=== PATIENT | female | born 1945 | race Caucasian/White ===

== ENCOUNTER 2020-11-30 17:32 | Emergency (ER) | payer MEDICARE ==
[~2020-11-30] VITALS: Ht 175.3 cm; Wt 94.8 kg
[2020-11-30 17:35] VITALS: BP 128/61
--- NOTE | 2020-11-30 19:15 | NUR ---
recieved report from marleen sarabia.
[2020-11-30] MEDS ORDERED: LIDOCAINE 2% 20 ML MDV ONE (19:47)
[2020-11-30] MEDS: LIDOCAINE HCL/PF 1% 30 ML VIAL TP ONE (20:02)
[2020-11-30] MEDS ORDERED: CEPH500T PO (20:43)
== END 2020-11-30 20:53 | disposition home or self-care (01) ==
LOC: ER 17:40
DX: S93.125A Dislocation of metatarsophalangeal joint of left lesser toe(s), initial encounter (principal); S91.115A Laceration without foreign body of left lesser toe(s) without damage to nail, initial encounter; S80.212A Abrasion, left knee, initial encounter; E11.40 Type 2 diabetes mellitus with diabetic neuropathy, unspecified; E03.9 Hypothyroidism, unspecified; E78.5 Hyperlipidemia, unspecified; Z79.01 Long term (current) use of anticoagulants; W18.39XA Other fall on same level, initial encounter; Y93.89 Activity, other specified; Y92.89 Other specified places as the place of occurrence of the external cause; Y99.8 Other external cause status
CPT/HCPCS: 28630; 73660; 99284; A6403; J3490 ×2

== ENCOUNTER 2025-01-06 14:54 | Inpatient (IN) | payer MEDICARE ==
[~2025-01-06] VITALS: Ht 175.3 cm; Wt 79.4 kg
[~2025-01-06 14:54] MED LIST: CEPH500C2 PO; CEPH500T PO
[2025-01-06 15:28] LABS: PLATELET COUNT (AUTO) 283 K/uL (150-450); RED BLOOD CELL COUNT(AUTO) 3.22 MIL/uL (4.0-5.2); RED CELL DISTRIBUTION WIDTH 14.8 % (11.5-15.0); WHITE BLOOD COUNT (AUTO) 6.2 K/uL (4.3-11.0)
[2025-01-06 15:35] LABS: CALCIUM, SERUM 8.9 mg/dL (8.5-10.1); CREATININE 1.6 mg/dL (0.6-1.3); SODIUM SERUM 128 mmol/L (136-145); UREA NITROGEN, BLOOD 30 mg/dL (7-18)
[2025-01-06] MEDS: IV NS 0.9% 1,000 ML BAG IV ONE (15:35)
[2025-01-06 15:48] LABS: NT-PRO BNP 92 pg/mL (0-125)
[2025-01-06] MEDS ORDERED: IV NS 0.9% 250 ML IV ONE (16:35)
[2025-01-06] MEDS ORDERED: IOHEXOL-350 100 ML VIAL IV ONE (16:35)
[2025-01-06 16:38] LABS: APPEARANCE,URINE CLEAR (CLEAR); BLOOD, URINE Negative Ery/uL (NEGATIVE); LEUKOCYTE ESTERASE ,URINE Small (NEGATIVE); UGLUCOSE 500 MG/DL mg/dL (NEGATIVE)
[2025-01-06 16:41] LABS: NITRITE, URINE NEGATIVE (NEGATIVE)
[2025-01-06 16:42] LABS: ADD URINE CULTURE YES; SQUAMOUS EPITHELIAL CELL,UR Few /HPF (None Seen)
[2025-01-06] MEDS: ENOXAPARIN SODIUM 80 MG/0.8 ML DISP.SYRIN SQ ONE (18:00)
[2025-01-06] MEDS: CEFTRIAXONE 1GM BAG (ER ONLY) 1 GM/50 ML PIGGYBACK IV ONE (18:00)
[2025-01-06] MEDS ORDERED: ONDANSETRON HCL/PF 4 MG/2 ML VIAL IVP PRN (18:30)
[2025-01-06] MEDS ORDERED: Z GUARD REMEDY 4 OZ OINT TP PRN (18:30)
[2025-01-06] MEDS ORDERED: MAG HYDROX/AL HYDROX/SIMETH 30 ML UDC PO PRN (18:30)
[2025-01-06] MEDS ORDERED: MAGNESIUM HYDROXIDE 30 ML UDC PO PRN (18:30)
[2025-01-06] MEDS ORDERED: CEFTRIAXONE 1GM BAG (ER ONLY) 50 ML IV ONE (18:31)
[2025-01-06] MEDS ORDERED: DEXTROSE 50%-WATER 50 ML DISP.SYRIN IV PRN (19:00)
[2025-01-06] MEDS ORDERED: CALC0.253 PO (19:13)
[2025-01-06] MEDS ORDERED: PROP10TA68 PO (19:13)
[2025-01-06] MEDS ORDERED: CLOP75TA15 PO (19:13)
[2025-01-06] MEDS ORDERED: GLIM2TAB31 PO (19:13)
[2025-01-06] MEDS ORDERED: LATA2.5D15 EACHEYE (19:13)
[2025-01-06] MEDS ORDERED: DONE10TA44 PO (19:13)
[2025-01-06] MEDS ORDERED: MIRT-90 PO (19:13)
[2025-01-06] MEDS ORDERED: SIMV-49 PO (19:13)
[2025-01-06] MEDS ORDERED: DULO60CA64 PO (19:13)
[2025-01-06] MEDS ORDERED: GABA-532 PO (19:13)
[2025-01-06] MEDS ORDERED: METF-881 PO (19:13)
[2025-01-06] MEDS ORDERED: EMPA25TA PO (19:13)
[2025-01-06] MEDS ORDERED: LISI20TA30 PO (19:13)
[2025-01-06] MEDS ORDERED: LEVO75TA7 PO (19:13)
[2025-01-06] MEDS ORDERED: CYAN10006 IM (19:13)
[2025-01-06] MEDS ORDERED: ENOXAPARIN SODIUM 80 MG/0.8 ML DISP.SYRIN SQ ONE (19:30)
[2025-01-06 20:15] VITALS: BP 141/57; O2SAT 97
[2025-01-06] MEDS: EPOETIN ALFA (10,000 UNIT) 10,000 UNIT/ML VIAL SQ ONE (20:34)
[2025-01-06] MEDS: IV NS 0.9% 1,000 ML IV PRN (20:55)
[2025-01-06] MEDS: BLOOD SUGAR DIAGNOSTIC 1 EACH STRIP IN SCH (22:55)
[2025-01-06] MEDS: INSULIN REGULAR, HUMAN 100 UNIT/ML 3 ML VIAL SQ PRN (22:56)
[2025-01-07] VITALS: BP 130/45; TEMP 97.9; O2SAT 100
[2025-01-07 04:00] VITALS: BP 105/56; TEMP 97.5; O2SAT 100
[2025-01-07 06:32] LABS: PLATELET COUNT (AUTO) 285 K/uL (150-450); RED BLOOD CELL COUNT(AUTO) 3.44 MIL/uL (4.0-5.2); RED CELL DISTRIBUTION WIDTH 14.8 % (11.5-15.0); WHITE BLOOD COUNT (AUTO) 6.7 K/uL (4.3-11.0)
[2025-01-07 06:47] LABS: CALCIUM, SERUM 9.3 mg/dL (8.5-10.1); CREATININE 1.5 mg/dL (0.6-1.3); PHOSPHORUS 3.7 mg/dL (2.5-4.9); SODIUM SERUM 137.0 mmol/L (136-145); UREA NITROGEN, BLOOD 24.0 mg/dL (7-18)
[2025-01-07 08:00] VITALS: BP 120/50; TEMP 97.5; O2SAT 100
[2025-01-07] MEDS ORDERED: MIRTAZAPINE 15 MG TABLET PO PRN (10:30)
[2025-01-07 12:00] VITALS: BP 102/45; TEMP 97.9; O2SAT 98
[2025-01-07] MEDS: GLIMEPIRIDE 1 MG TABLET PO SCH (13:49)
[2025-01-07 16:00] VITALS: BP 115/55; TEMP 97.8; O2SAT 98
[2025-01-07] MEDS ORDERED: PROPRANOLOL HCL 10 MG TABLET PO SCH (17:00)
[2025-01-07] MEDS: SIMVASTATIN 20 MG TABLET PO SCH (17:08)
[2025-01-07] MEDS: CEFTRIAXONE 1 G in IV D5W 50 ML IV SCH (17:08)
[2025-01-07] MEDS: ENOXAPARIN SODIUM 80 MG/0.8 ML DISP.SYRIN SQ SCH (17:09)
[2025-01-07 20:00] VITALS: BP 119/53; TEMP 97.7; O2SAT 97
[2025-01-07 20:28] LABS: FIBRINOGEN ACTIVITY 357.0 Mg/dL (213-485); INR 1.03 (0.91-1.10)
[2025-01-07 21:04] LABS: IRON, SERUM 31.0 ug/dl (50-175)
[2025-01-07] MEDS: LATANOPROST EYE DROP 0.005% 2.5 ML BOTTLE EACHEYE SCH (21:08)
[2025-01-08] VITALS: BP 129/58; TEMP 97.9; O2SAT 97
[2025-01-08] MEDS: ACETAMINOPHEN 325 MG TABLET PO PRN (00:01)
[2025-01-08 04:00] VITALS: BP 131/53; TEMP 97.7; O2SAT 98
[2025-01-08 07:52] LABS: PLATELET COUNT (AUTO) 268 K/uL (150-450); RED BLOOD CELL COUNT(AUTO) 3.37 MIL/uL (4.0-5.2); RED CELL DISTRIBUTION WIDTH 15.0 % (11.5-15.0); WHITE BLOOD COUNT (AUTO) 6.0 K/uL (4.3-11.0)
[2025-01-08 08:00] VITALS: BP 128/56; TEMP 97.5; O2SAT 98
[2025-01-08 08:27] LABS: CALCIUM, SERUM 9.3 mg/dL (8.5-10.1); CREATININE 1.5 mg/dL (0.6-1.3); SODIUM SERUM 143.0 mmol/L (136-145); UREA NITROGEN, BLOOD 24.0 mg/dL (7-18)
[2025-01-08] MEDS: EMPAGLIFLOZIN 25 MG TABLET PO SCH (08:30)
[2025-01-08] MEDS: CLOPIDOGREL BISULFATE 75 MG TABLET PO SCH (08:30)
[2025-01-08] MEDS: DULOXETINE HCL 30 MG CAPSULE.DR PO SCH (08:30)
[2025-01-08] MEDS: DONEPEZIL 5 MG TABLET PO SCH (08:30)
[2025-01-08] MEDS: LEVOTHYROXINE SODIUM 75 MCG TABLET PO SCH (08:31)
[2025-01-08] MEDS: GABAPENTIN 100 MG CAPSULE PO SCH (08:31)
[2025-01-08 12:00] VITALS: BP 123/59; TEMP 97.5; O2SAT 100
[2025-01-08 16:00] VITALS: BP 125/63; TEMP 98.1; O2SAT 100
[2025-01-08 20:00] VITALS: BP 126/60; TEMP 97.7; O2SAT 97
[2025-01-09] VITALS: BP 126/68; TEMP 97.5; O2SAT 97
[2025-01-09 04:00] VITALS: BP 122/58; TEMP 97.7; O2SAT 97
[2025-01-09 06:10] LABS: HOMOCYSTEINE, PLASMA 15.6 umol/L (0.0-19.2)
[2025-01-09 07:56] LABS: CALCIUM, SERUM 8.7 mg/dL (8.5-10.1); CREATININE 1.3 mg/dL (0.6-1.3); SODIUM SERUM 139.0 mmol/L (136-145); UREA NITROGEN, BLOOD 26.0 mg/dL (7-18)
[2025-01-09 08:00] VITALS: BP 122/61; TEMP 98.1; O2SAT 99
[2025-01-09 08:07] LABS: IMMUNOGLOBULIN A, SERUM 321 mg/dL (64-422); IMMUNOGLOBULIN M, SERUM 104 mg/dL (26-217)
[2025-01-09 08:19] LABS: PLATELET COUNT (AUTO) 255 K/uL (150-450); RED BLOOD CELL COUNT(AUTO) 2.97 MIL/uL (4.0-5.2); RED CELL DISTRIBUTION WIDTH 14.9 % (11.5-15.0); WHITE BLOOD COUNT (AUTO) 6.0 K/uL (4.3-11.0)
[2025-01-09 09:09] LABS: FOLIC ACID 8.4 ng/mL (>3.0)
[2025-01-09] MEDS: ENOXAPARIN SODIUM 80 MG/0.8 ML DISP.SYRIN SQ SCH (09:34)
[2025-01-09 11:07] LABS: FREE KAPPA LT CHAINS SERUM 49.0 mg/L (3.3-19.4); FREE LAMBDA LT CHAIN SERUM 39.1 mg/L (5.7-26.3); KAPPA/LAMBDA RATIO SERUM 1.25 (0.26-1.65)
[2025-01-09 12:00] VITALS: BP 118/58; TEMP 97.5; O2SAT 99
[2025-01-09] MEDS ORDERED: MAG30ORA PO (12:59)
[2025-01-09] MEDS ORDERED: INSU100V28 SQ (12:59)
[2025-01-09] MEDS ORDERED: ENOX80DI SQ (12:59)
[2025-01-09] MEDS ORDERED: Blood Sugar Diagnostic IN (12:59)
[2025-01-09] MEDS: SOD FERRIC GLUC 125 MG in IV NS 0.9% 100 ML IV SCH (13:38)
[2025-01-09 16:00] VITALS: BP 125/63; TEMP 98.2; O2SAT 96
[2025-01-09 20:00] VITALS: BP 126/60; TEMP 97.7; O2SAT 98
[2025-01-10] VITALS: BP 130/59; TEMP 97.7; O2SAT 98
[2025-01-10 04:00] VITALS: BP 123/57; TEMP 97.5; O2SAT 95
[2025-01-10 07:46] LABS: PLATELET COUNT (AUTO) 252 K/uL (150-450); RED BLOOD CELL COUNT(AUTO) 2.98 MIL/uL (4.0-5.2); RED CELL DISTRIBUTION WIDTH 15.0 % (11.5-15.0); WHITE BLOOD COUNT (AUTO) 5.9 K/uL (4.3-11.0)
[2025-01-10 07:50] LABS: CALCIUM, SERUM 9.1 mg/dL (8.5-10.1); CREATININE 1.2 mg/dL (0.6-1.3); SODIUM SERUM 140.0 mmol/L (136-145); UREA NITROGEN, BLOOD 29.0 mg/dL (7-18)
[2025-01-10 08:00] VITALS: BP 123/57; TEMP 97.5; O2SAT 100
[2025-01-10 12:00] VITALS: BP 123/57; TEMP 97.8; O2SAT 100
[2025-01-11] MEDS ORDERED: CYANOCOBALAMIN 1,000 MCG/ML VIAL IM SCH (09:00)
[2025-01-11] MEDS ORDERED: CALCITRIOL 0.25 MCG CAPSULE PO SCH (09:00)
[2025-01-12 14:12] LABS: *CARD ANTI-CARDIOLIPIN AB IgG <9 GPL U/mL (0-14); *CARD ANTI-CARDIOLIPIN AB IgM <9 MPL U/mL (0-12)
== END 2025-01-10 16:10 | DRG 175 ==
LOC: ER 15:07 → TELE1 19:34
PROVIDERS: ADMIT Nurse Practitioner Acute Care; ATTEND Nurse Practitioner Acute Care
DX: I26.99 Other pulmonary embolism without acute cor pulmonale (principal); N17.0 Acute kidney failure with tubular necrosis; E87.1 Hypo-osmolality and hyponatremia; N39.0 Urinary tract infection, site not specified; F84.0 Autistic disorder; I82.432 Acute embolism and thrombosis of left popliteal vein; E87.5 Hyperkalemia; I27.82 Chronic pulmonary embolism; I12.9 Hypertensive chronic kidney disease with stage 1 through stage 4 chronic kidney disease, or unspecified chronic kidney disease; N18.9 Chronic kidney disease, unspecified; E11.22 Type 2 diabetes mellitus with diabetic chronic kidney disease; E11.40 Type 2 diabetes mellitus with diabetic neuropathy, unspecified; E78.5 Hyperlipidemia, unspecified; D63.1 Anemia in chronic kidney disease; E03.9 Hypothyroidism, unspecified; E86.1 Hypovolemia; N25.0 Renal osteodystrophy; G47.33 Obstructive sleep apnea (adult) (pediatric); D50.9 Iron deficiency anemia, unspecified; I27.21 Secondary pulmonary arterial hypertension; L89.159 Pressure ulcer of sacral region, unspecified stage; Z79.02 Long term (current) use of antithrombotics/antiplatelets; Z79.84 Long term (current) use of oral hypoglycemic drugs; Z79.899 Other long term (current) drug therapy; Z87.440 Personal history of urinary (tract) infections; R00.1 Bradycardia, unspecified
CPT/HCPCS: 36415; 71045-TC; 80048-TC; 81001; 81240; 81241; 82378; 82607-TC; 82728-TC; 82784; 82962-TC; 83090; 83540-TC; 83735-TC; 83880; 84100-TC; 84155; 84165; 84443-TC; 84484-TC; 85025-TC; 85300; 85301; 85303; 85378-TC; 85396; 85613; 85670; 85705; 85732; 86147; 86334; 87086-TC; 93307-TC; 93970-TC; 97112-TC; 97116-TC; 97530-TC; A4223; G0378; J0696; J0885; J1650; J1815; J2916; J7030; J7050; J7060; Q9967

== ENCOUNTER 2025-04-13 18:15 | Emergency (ER) | payer MEDICARE ==
[~2025-04-13] VITALS: Ht 172.7 cm; Wt 93.0 kg
[~2025-04-13 18:15] MED LIST changes: +Blood Sugar Diagnostic IN; +CALC0.253 PO; -CEPH500C2 PO; -CEPH500T PO; +CLOP75TA15 PO; +CYAN10006 IM; +DONE10TA44 PO; +DULO60CA64 PO; +EMPA25TA PO; +ENOX80DI SQ; +GABA-532 PO; +GLIM2TAB31 PO; +INSU100V28 SQ; +LATA2.5D15 EACHEYE; +LEVO75TA7 PO; +LISI20TA30 PO; +MAG30ORA PO; +METF-881 PO; +MIRT-90 PO; +SIMV-49 PO
[2025-04-13 18:46] VITALS: BP 136/61; TEMP 98.1; O2SAT 97
[2025-04-13] MEDS ORDERED: BACITRACIN ZINC OINT PACKET 1 EA PACKET TP ONE (19:02)
[2025-04-13] MEDS ORDERED: TDAP [DIPH/PERTUSSIS/TET] 0.5 ML VIAL IM ONE (19:06)
[2025-04-13] MEDS: TDAP [DIPH/PERTUSSIS/TET] 0.5 ML VIAL IM ONE (19:16)
[2025-04-13] MEDS: BACITRACIN ZINC OINT PACKET 1 EA PACKET TP ONE (19:17)
== END 2025-04-13 19:19 | disposition home or self-care (01) ==
LOC: ER 18:30
DX: S61.412A Laceration without foreign body of left hand, initial encounter (principal); E03.9 Hypothyroidism, unspecified; E11.40 Type 2 diabetes mellitus with diabetic neuropathy, unspecified; E78.5 Hyperlipidemia, unspecified; Z79.01 Long term (current) use of anticoagulants; Z79.02 Long term (current) use of antithrombotics/antiplatelets; Z79.84 Long term (current) use of oral hypoglycemic drugs; Z79.899 Other long term (current) drug therapy; W45.8XXA Other foreign body or object entering through skin, initial encounter; Y93.89 Activity, other specified; Y92.89 Other specified places as the place of occurrence of the external cause; Y99.8 Other external cause status
CPT/HCPCS: 90715